=== PATIENT | female | born 1995 | race Two or more races ===

== ENCOUNTER 2016-03-17 17:22 | Emergency (ER) | payer MEDICAID, OTHER ==
[2016-03-17 17:32] VITALS: TEMP 97.7; BMI 24.2
--- NOTE | 2016-03-17 19:07 | EDPRACDOC ---
- General Information Chief Complaint: Flu-Like Symptoms Stated Complaint: CHEST DISCOMFORT LEFT SIDE Time Seen by Provider: 03/17/16 19:01 Information Source: Patient Home Medications: Home Medications Ketoprofen 50 mg PO BID PRN #20 capsule 03/17/16 Allergies/Adverse Reactions: Allergies Allergy/AdvReac Type Severity Reaction Status Date / Time No Known Allergies Allergy Verified 03/17/16 17:31 - History of Present Illness Onset: 2 DAYS HPI: PT STATES "STINGING" INTERMITTENT PAIN IN LEFT CHEST X 2-3 DAYS, WORSE WITH LAYING DOWN AND TAKING A DEEP BREATH, PT STATES RECENTLY HAD A "COLD" WITH SOME CONGESTION BUT "NOT MUCH COUGH", PT DENIES ANY KNOWN INJURY TO HER CHEST, NO ASSOC SOBR, N/V/D, DIAPHORESIS. PT HAS TAKING ADVIL WITH SOME RELIEF. Current Symptoms: Reports: Cough, Nasal Symptoms, Sore Throat, Other. Denies: Earache, Fever, Headache, Myalgia, Nausea, Vomiting Shortness of Breath: None Cough: Reports: Non-productive Rhinorrhea: Reports: Clear Ear Symptoms: Reports: None Fever Severity/Quality: Reports: no fever Oral Intake: Normal Urinary Output: Normal Relevant History of: None Associated Signs & Symptoms:: Reports: Cough, Nasal Symptoms, Sore Throat ED Past Medical History - History Reviewed Yes Nurses notes reviewed and agree except as marked No Past Medical History: Yes Patient has no past medical history - Patient Medical History Psychological History: Denies: Depression - Social Medical History Smoking Status: Never smoker ETOH: None Substance Abuse: None EDM Review of Systems - Review of Systems Constitutional: negative: Chills, Fever Eyes: negative: Blurred Vision, Double Vision Ears: negative: Drainage Throat: Pain Nose: Congestion, Discharge Respiratory: Cough. negative: Shortness of Breath, Wheezing Cardiovascular: Chest Pain. negative: Palpitations Gastrointestinal: negative: Diarrhea, Nausea, Pain, Vomiting Genitourinary: negative: Dysuria, Frequency Neurological: negative: Dizziness, Headache, Numbness, Weakness Musculoskeletal: No Symptoms Reported Integumentary: No Symptoms Reported - Physical Exam Constitutional: Alert (Awake), No apparent distress Oriented to: Time, Person, Place Last recorded Vital Signs: Last Vital Signs Temp 97.7 F 03/17/16 17:30 Pulse 89 03/17/16 17:30 Resp 18 03/17/16 17:30 BP 145/64 03/17/16 17:30 Pulse Ox 100 03/17/16 17:30 Oxygen Pulse Oxygen Saturation 100 O2 Device Room Air Oxygen Flow Rate Fraction of Inspired Oxygen ( FIO2) - HEENT Head: Normal ( normocephalic) Eye Exam: Normal (PERRL, EOMI, Sclera white) Oropharynx: Normal (Pharynx:Moist without exudate,Gums-no swelling) Tympanic Membrane: Normal ENT EAC: Normal TMJ: Normal Nose: No Symptoms Reported (septum midline) Neck: Normal (FROM, trachea at midline) - Respiratory/Cardiovascular Respiratory: Normal - CTA (BBS clear to auscultation without adventitious sounds ) Cardiovascular: Normal (RRR without murmur, gallop or rub) - GI Auscultation: Normal (NABS) Palpation: Normal (Soft,No rebound or guarding, non distended) Tenderness: Non tender Hodge's Sign: Negative - Musculoskeletal Back: Normal (Non-Tender) Extremities: Normal (Normal tone, Pulses 2+ No cyanosis or edema, FROM) - Integumentary Skin: Normal, Warm, Dry Lymphatics: Normal (no adenopathy) - Neurologic Memory Impaired: Normal Motor Function: Normal (Normal tone, Pulses 2+ No cyanosis or edema, FROM) Cranial Nerve: Normal (CN II-X11 intact sensation, strength 5/5) Cerebellar: Normal Mood Description: Normal Perception: Normal - Differential Diagnosis Bronchitis, URI - Diagnostic Imaging CXR Image interpreted by: Radiologist : CHEST 2 VIEW COMPARISON: None. FINDINGS: The heart size and mediastinal contours are within normal limits. Both lungs are clear. The visualized skeletal structures are unremarkable. IMPRESSION: No active cardiopulmonary disease. Decision Time to Discharge: 20:11 - Departure Disposition: Home Condition: Stable Final Diagnosis: Chest wall pain Instructions: Chest Wall Pain Education/Counseling Given To: Patient Education/Counseling Given Regarding: Diagnosis, Treatment, Prognosis, Follow Up Referrals: Bhavik Holly MD [Staff Physician] - One Week Prescriptions: Ketoprofen 50 mg PO BID PRN #20 capsule PRN Reason: Pain Forms: Excuse Note Additional Instructions: APPLY WARM COMPRESSES TO AREA OF SORENESS 20 MINS AT A TIME 4 - 5 TIMES DAILY NEEDED FOR PAIN
--- NOTE | 2016-03-17 19:48 | DIRPT ---
CLINICAL DATA: LEFT-sided chest pain for 2 days. Cough and congestion. EXAM: CHEST 2 VIEW COMPARISON: None. FINDINGS: The heart size and mediastinal contours are within normal limits. Both lungs are clear. The visualized skeletal structures are unremarkable. IMPRESSION: No active cardiopulmonary disease. Electronically Signed By: Hayden Costa M.D. On: 03/17/2016 19:46
[2016-03-17 20:07] VITALS: BP 134/61; PULSE 79
== END 2016-03-17 20:30 | disposition home or self-care (01) ==
LOC: EDMC 17:22
DX: R07.89 Other chest pain (principal)
CPT/HCPCS: 71020; 99283